=== PATIENT | female | born 1995 | race African-American/Black ===

== ENCOUNTER 2023-04-10 18:13 | Emergency (ER) | payer MEDICAID ==
[~2023-04-10] VITALS: Ht 162.6 cm; Wt 124.7 kg
[2023-04-10 18:45] VITALS: BP_SYST 140
--- NOTE | 2023-04-10 18:49 | NUR ---
Pt C/O papitations. States symptoms appeared after she started taking penicillin for toothache. No PMH. NKDA tachycardic at this time Patient triaged and placed in waiting room. VSS and patient appears in no acute distress at this time. Accompanied by self, awaiting available bed, and MD notified of need for MSE.
[2023-04-10 19:34] LABS: BASOPHILS % (AUTO) 0.5 % (0.0-2.0); HEMATOCRIT 30.1 % (36-48); HEMOGLOBIN 9.6 g/dL (12.0-16.0); LYMPHOCYTES # (AUTO) 1.4 K/uL (1.0-5.5); LYMPHOCYTES % (AUTO) 29.2 % (20.5-51.5); MEAN CORPUSCULAR HEMOGLOBIN 22 pg (27-31); MEAN CORPUSCULAR HGB CONC 32 % (32-36); MEAN CORPUSCULAR VOLUME 69 fL (79.0-98.0); MONOCYTES # (AUTO) 0.4 K/uL (0.0-1.0); NEUTROPHILS # (AUTO) 2.8 K/uL (1.8-7.7); NEUTROPHILS % (AUTO) 60.3 % (40.0-70.0); PLATELET COUNT (AUTO) 422 K/uL (130-430); RED BLOOD CELL COUNT(AUTO) 4.37 MIL/uL (4.2-6.2); RED CELL DISTRIBUTION WIDTH 18.7 % (9.0-15.0); WHITE BLOOD COUNT (AUTO) 4.7 K/uL (4.8-10.8)
[2023-04-10 19:43] LABS: ALBUMIN 3.8 g/dL (3.4-4.8); CALCIUM 8.6 mg/dL (8.4-11.0); CREATININE 0.85 mg/dL (0.55-1.30); TOTAL BILIRUBIN 0.2 mg/dL (0.0-1.0)
[2023-04-10 19:48] LABS: THYROID STIMULATING HORMONE 2.3 uIu/mL (0.36-3.74)
--- NOTE | 2023-04-10 20:12 | NUR ---
Patient arrived to ED 5 for c/o general weakness palpitations. Patient said she was dizzy and lightheadedness. Patient denies eating or drinking anything out of the ordinary. She took penicillin since thursday for tooth infection but stopped because she "wasn't feeling right." Patient is alert and oriented x4. Respiration even and unlabored. No shortness of breath. Will continue to monitor. Call light within reach.
[2023-04-10 20:22] LABS: BILIRUBIN,URINE NEGATIVE (NEGATIVE); BLOOD, URINE 3+ (NEGATIVE); CLARITY/URINE CLEAR (CLEAR); COLOR,URINE YELLOW (YELLOW); GLUCOSE,URINE NEGATIVE (NEGATIVE); KETONES,URINE NEGATIVE (NEGATIVE); LEUKOCYTE ESTERASE ,URINE TRACE (NEGATIVE); NITRITE, URINE NEGATIVE (NEGATIVE); PROTEIN URINE NEGATIVE (NEGATIVE); UROBILINOGEN,URINE 0.2 (0.2-1.0)
--- NOTE | 2023-04-10 20:24 | NUR ---
ER at bedside examining patient.
[2023-04-10 20:39] LABS: BACTERIA,URINE FEW /HPF (None Seen); MUCUS,URINE None Seen /LPF (None Seen); RBC,URINE NONE SEEN /HPF (0-3)
[2023-04-10 21:10] VITALS: BP_SYST 134
--- NOTE | 2023-04-10 21:10 | NUR ---
Patient given written and verbal discharge instructions and verbalizes understanding. ER MD discussed with patient the results and treatment provided. Patient in stable condition. ID arm band removed. WORK NOTE PROVIDED Patient educated on pain management and to follow up with PMD. Pain Scale . Opportunity for questions provided and answered. Medication side effect fact sheet provided.
== END 2023-04-10 21:10 | disposition home or self-care (01) ==
LOC: SED 18:13
DX: D64.9 Anemia, unspecified (principal); R53.1 Weakness; R00.2 Palpitations; R42 Dizziness and giddiness; R11.0 Nausea; Z79.899 Other long term (current) drug therapy
CPT/HCPCS: 36415; 80053; 81000; 81025; 84439; 84443; 85025; 93005; 99284